=== PATIENT | female | born 1990 | race Caucasian/White ===

== ENCOUNTER 2017-01-12 15:16 | Emergency (ER) | payer OTHER ==
[~2017-01-12] VITALS: Ht 157.5 cm; Wt 73.0 kg
[~2017-01-12 15:16] MED LIST: CIPR250T6 PO; IBUP-974 PO; PHEN-136 PO
[2017-01-12 16:23] VITALS: BP 114/75
--- NOTE | 2017-01-12 16:47 | NUR ---
PT TAKEN TO BED8
--- NOTE | 2017-01-12 16:48 | NUR ---
26/F BIB SELF C/O RIGHT SIDED LBP RADIATES TO RIGHT ABDOMEN X4 DAYS. PT STATES SHE HAD 1 EPISODE OF DIARRHEA THIS AM. SKIN IS PINK/WARM/DRY; AAOX4 WITH EVEN AND STEADY GAIT; LUNGS CLEAR BL; HR EVEN AND REGULAR; PT DENIES ANY FEVER, CP, SOB, OR COUGH AT THIS TIME; PATIENT STATES PAIN OF 6/10 AT THIS TIME; VSS; PATIENT POSITIONED FOR COMFORT; HOB ELEVATED; BEDRAILS UP X2; BED DOWN. ER MD MADE AWARE OF PT STATUS.
--- NOTE | 2017-01-12 16:48 | NUR ---
Note undone in EDM - 01/12/17 at 1713 by [email or web address] W/C/O RIGHT SIDED LBP RADIATES TO RIGHT ABDOMINAL X4 DAYS. PT STATES SHE HAD 1 EPISODE OF DIARRHEA THIS AM. SKIN IS PINK/WARM/DRY; AAOX4 WITH EVEN AND STEADY GAIT; LUNGS CLEAR BL; HR EVEN AND REGULAR; PT DENIES ANY FEVER, CP, SOB, OR COUGH AT THIS TIME; PATIENT STATES PAIN OF 6/10 AT THIS TIME; VSS; PATIENT POSITIONED FOR COMFORT; HOB ELEVATED; BEDRAILS UP X2; BED DOWN. ER MADE AWARE OF PT STATUS.
[2017-01-12] MEDS ORDERED: ONDANSETRON 4 MG/2 ML VIAL IVP ONE (16:50)
[2017-01-12] MEDS ORDERED: NACL 0.9% 1,000 ML IV ONE (16:50)
[2017-01-12] MEDS ORDERED: MORPHINE SULFATE 4 MG/ML SYR IVP ONE (16:50)
--- NOTE | 2017-01-12 16:50 | NUR ---
Patient being evaluated by DR FRANCES at bedside.
--- NOTE | 2017-01-12 17:10 | NUR ---
US AT BEDSIDE.
[2017-01-12 17:34] LABS: BASOPHILS # (AUTO) 0.5 K/uL (0.00-0.22); EOSINOPHILS # (AUTO) 0.3 K/uL (0-0.4); HEMATOCRIT 40.5 % (36-48); HEMOGLOBIN 13.3 g/dL (12.0-16.0); LYMPHOCYTES # (AUTO) 1.6 K/uL (2.5-16.5); MEAN CORPUSCULAR HEMOGLOBIN 29 pg (27-31); MEAN CORPUSCULAR HGB CONC 33 g/dL (33-37); MEAN CORPUSCULAR VOLUME 88 fL (80-94); MONOCYTES # (AUTO) 0.8 K/uL (0.8-1.0); NEUTROPHILS # (AUTO) 5.4 K/uL (1.8-7.7); PLATELET COUNT (AUTO) 247 K/uL (140-450); RED BLOOD CELL COUNT(AUTO) 4.58 MIL/uL (4.20-5.40); RED CELL DISTRIBUTION WIDTH 11.8 % (11.6-13.7); WHITE BLOOD COUNT (AUTO) 8.6 K/uL (4.8-10.8)
--- NOTE | 2017-01-12 17:39 | NUR ---
PT REFUSED MEDS AT THIS TIME. NOTIFIED DR FRANCES. AWARE. Addendum: 01/12/17 at 1740 by [email or web address] PT STATED PAIN 09/22 .
[2017-01-12 17:44] LABS: ANION GAP 16.2 (8-16); CARBON DIOXIDE 25.8 mmol/L (21-32); CREATININE 0.7 mg/dL (0.6-1.3)
[2017-01-12 17:45] LABS: APPEARANCE,URINE CLEAR (CLEAR); BILIRUBIN,URINE NEGATIVE (NEGATIVE); BLOOD, URINE 1+ (NEGATIVE); COLOR,URINE YELLOW (YELLOW); LEUKOCYTE ESTERASE ,URINE NEGATIVE (NEGATIVE); NITRITE, URINE NEGATIVE (NEGATIVE); PH,URINE 5.5 (5.0-9.0); UGLUCOSE NEGATIVE (NEGATIVE)
[2017-01-12 17:49] LABS: WBC,URINE 0-5 /HPF (0-5)
[2017-01-12 17:50] LABS: TOTAL BILIRUBIN 0.6 mg/dL (0.0-1.0)
--- NOTE | 2017-01-12 18:03 | NUR ---
Patient appears to be resting comfortably in bed. Vital Signs within normal limits. Respirations even and unlabored.WILL CONTINUE TO MONITOR.
--- NOTE | 2017-01-12 18:20 | NUR ---
Patient being reevaluated by DR FRANCES at bedside.
--- NOTE | 2017-01-12 18:35 | NUR ---
IV removed, catheter intact and site benign. Applied folded 4x4 gauze and tape to stop bleeding.
[2017-01-12 18:40] VITALS: BP 112/73
--- NOTE | 2017-01-12 18:40 | NUR ---
Patient discharged with v/s stable. Written and verbal after care instructions given and explained. Patient verbalized understanding. Ambulatory with steady gait. All questions addressed prior to discharge. Advised to follow up with PMD.
== END 2017-01-12 18:40 | disposition home or self-care (01) ==
LOC: MED 15:16
DX: R10.13 Epigastric pain (principal); R10.11 Right upper quadrant pain
CPT/HCPCS: 36415; 76700; 80053; 81001; 81025; 83690; 85025; 96360; 99285; J2405; J7030; Q0092; J2270

== ENCOUNTER 2017-10-09 19:14 | Emergency (ER) | payer OTHER ==
[~2017-10-09] VITALS: Ht 157.5 cm; Wt 77.1 kg
[~2017-10-09 19:14] MED LIST changes: -PHEN-136 PO; +PHEN-1749 PO
[2017-10-09 19:15] VITALS: BP 125/60
--- NOTE | 2017-10-09 19:18 | NUR ---
AMBULATED TO BED #2. GAVE REPORT TO VIRGIL HARPER
--- NOTE | 2017-10-09 19:27 | NUR ---
27 YO F TO ER WITH C/O RIGHT ULNAR SIDE OF WRIST PAIN S/P FALL ON STAIRS 1.5HRS AGO . PT STATES SLIPPING ON STAIRS AND ATTEMPTING TO CATCH SELF. PT STATED THAT THERE WAS A LY OF PAIN IN THE R WRIST. R WRIST WITH MILD SWELLING. NO DEFORMITY, NO REDDNESS. +RADIAL PULSES, <3 SEC CAP REFILL. MINIMAL ROM OF WRIST DUE TO PAIN. DENIES N/V/D; SKIN IS PINK/WARM/DRY; AAOX4 WITH EVEN AND STEADY GAIT; LUNGS CLEAR BL; HR EVEN AND REGULAR; PT DENIES ANY FEVER, CP, SOB, OR COUGH AT THIS TIME; PATIENT STATES PAIN OF 0/10 AT THIS TIME, PT STATES PAIN ONLY WITH MOVEMENT; VSS; PATIENT POSITIONED FOR COMFORT; HOB ELEVATED; BEDRAILS UP X2; BED DOWN. ER MD MADE AWARE OF PT STATUS.
[2017-10-09 22:13] VITALS: BP 120/78
--- NOTE | 2017-10-09 22:13 | NUR ---
Patient discharged with v/s stable. Written and verbal after care instructions given and explained dR. Marroquin. Patient alert, oriented and verbalized understanding of instructions. Ambulatory with steady gait. All questions addressed prior to discharge. ID band removed. Patient advised to follow up with PMD. Rx of NAPROSYN 500MG given. Patient educated on indication of medication including possible reaction and side effects. Opportunity to ask questions provided and answered.
== END 2017-10-09 22:13 | disposition home or self-care (01) ==
LOC: MED 19:14
DX: S40.021A Contusion of right upper arm, initial encounter (principal); W10.9XXA Fall (on) (from) unspecified stairs and steps, initial encounter; Y93.02 Activity, running; Y99.8 Other external cause status; Y92.89 Other specified places as the place of occurrence of the external cause
CPT/HCPCS: 73090; 81002; 81025; 99284; Q0092

== ENCOUNTER 2018-06-23 11:28 | Emergency (ER) | payer OTHER ==
[~2018-06-23] VITALS: Ht 162.6 cm; Wt 79.2 kg
[~2018-06-23 11:28] MED LIST changes: -CIPR250T6 PO; -PHEN-1749 PO
[2018-06-23 11:40] VITALS: BP 125/73
--- NOTE | 2018-06-23 11:48 | NUR ---
PT AMBULATES TO BED 7
[2018-06-23] MEDS ORDERED: KETOROLAC 30 MG/ML VIAL IVP ONE (12:00)
[2018-06-23] MEDS ORDERED: NACL 0.9% 1,000 ML IV ONE (12:00)
--- NOTE | 2018-06-23 12:00 | NUR ---
28 yo f bib family w/ c/o weakness, severe n/v x 2 days. poss dehydration. dry lips/mucous membranes w/ tachy 120 bedside monitor. sent over by urgent care for stat labs and ivf. pt aaox4, gcs 15. rr even and unlabored. denies abd pain and diarrhea. intermittent fevers. temp 99.1 at this time. abd soft, non-tender. pt reports right lower back stiffness/pain, denies dysuria. given zofran at urgent care, reports improvement. nad. waiting er md lua. will continue to monitor.
--- NOTE | 2018-06-23 12:04 | NUR ---
lab at bedside.
[2018-06-23 12:14] LABS: BASOPHILS % (AUTO) 0.2 % (0.0-2.0); EOSINOPHILS % (AUTO) 0.1 % (0.0-4.0); HEMOGLOBIN 14.3 g/dL (12.0-16.0); LYMPHOCYTES # (AUTO) 1.1 K/uL (2.5-16.5); LYMPHOCYTES % (AUTO) 6.7 % (20.5-51.1); MEAN CORPUSCULAR HEMOGLOBIN 29 pg (27-31); MEAN CORPUSCULAR HGB CONC 33 g/dL (33-37); MEAN CORPUSCULAR VOLUME 86.7 fL (80-94); MONOCYTES # (AUTO) 1.1 K/uL (0.8-1.0); MONOCYTES % (AUTO) 6.5 % (1.7-9.3); NEUTROPHILS # (AUTO) 14.9 K/uL (1.8-7.7); NEUTROPHILS % (AUTO) 86.5 % (42.2-75.2); PLATELET COUNT (AUTO) 290 K/uL (140-450); RED BLOOD CELL COUNT(AUTO) 4.96 MIL/uL (4.20-5.40); RED CELL DISTRIBUTION WIDTH 12.6 % (11.6-13.7); WHITE BLOOD COUNT (AUTO) 17.2 K/uL (4.8-10.8)
[2018-06-23 12:38] LABS: ALBUMIN 4.2 g/dL (3.4-5.0); ANION GAP 13.9 (8-16); CARBON DIOXIDE 27.7 mmol/L (21-32); CREATININE 0.8 mg/dL (0.6-1.3); POTASSIUM 3.6 mmol/L (3.5-5.1); TOTAL BILIRUBIN 0.7 mg/dL (0.0-1.0)
[2018-06-23 12:43] LABS: PROTHROMBIN TIME 10.8 secs (10.8-13.4)
[2018-06-23 12:47] LABS: BILIRUBIN,URINE NEGATIVE (NEGATIVE); BLOOD, URINE 3+ (NEGATIVE); COLOR,URINE YELLOW (YELLOW); LEUKOCYTE ESTERASE ,URINE NEGATIVE (NEGATIVE); NITRITE, URINE NEGATIVE (NEGATIVE); UGLUCOSE NEGATIVE (NEGATIVE)
[2018-06-23 12:51] LABS: APPEARANCE,URINE SLIGHTLY HAZY (CLEAR)
[2018-06-23 12:52] LABS: RBC,URINE 0-5 (RARE) /HPF (0-5); WBC,URINE 0-5 (RARE) /HPF (0-5)
[2018-06-23] MEDS ORDERED: AMOXICILLIN 500 MG CAP PO ONE (13:25)
--- NOTE | 2018-06-23 14:07 | NUR ---
Patient discharged with v/s stable. Written and verbal after care instructions given and explained. Patient alert, oriented and verbalized understanding of instructions. Ambulatory with steady gait. All questions addressed prior to discharge. ID band removed. Patient advised to follow up with PMD. Rx of MOtrin 800mg, Amoxicillin 500mg, and Zofran 4mg given. Patient educated on indication of medication including possible reaction and side effects. Opportunity to ask questions provided and answered.
[2018-06-23 14:08] VITALS: BP 118/70
== END 2018-06-23 14:07 | disposition home or self-care (01) ==
LOC: MED 11:28
DX: J02.9 Acute pharyngitis, unspecified (principal); R53.1 Weakness; R52 Pain, unspecified; Z79.1 Long term (current) use of non-steroidal anti-inflammatories (NSAID)
CPT/HCPCS: 36415; 80053; 81001; 81025; 83690; 85025; 85610; 85730; 87804; 96361; 96374; 99283; J1885; J7030

== ENCOUNTER 2019-03-21 09:45 | Emergency (ER) | payer OTHER ==
[~2019-03-21] VITALS: Ht 157.5 cm; Wt 81.2 kg
[2019-03-21 09:50] VITALS: BP 136/79
--- NOTE | 2019-03-21 09:53 | NUR ---
TO ED 02 WITH STEADY GAIT.
--- NOTE | 2019-03-21 09:54 | NUR ---
PT AMBULATED TO RESTROOM TO PROVIDE URINE
--- NOTE | 2019-03-21 09:58 | NUR ---
PATIENT PRESENTS TO ED WITH C/O DIZZINESS, SHAKINESS, AND FEELS HEAD PRESSURE WHEN WAKE UP IN THE MORNING FOR THE PAST 3 DAYS. STATED POOR APPETITE, NAUSEA WITH EVERY MEAL. DENIES PAIN. VSS; PATIENT POSITIONED FOR COMFORT; HOB ELEVATED; BEDRAILS UP X2; BED DOWN. ER MD MADE AWARE OF PT STATUS.
--- NOTE | 2019-03-21 10:20 | NUR ---
Dr. Pickering is evaluating the patient at bedside.
[2019-03-21] MEDS ORDERED: ONDANSETRON 4 MG ODT PO ONE (10:25)
[2019-03-21] MEDS ORDERED: MECLIZINE 25 MG TAB PO ONE (10:25)
--- NOTE | 2019-03-21 10:40 | NUR ---
URINE COLLECTED, URINE DIP AND PREGNENCY TEST COMPLETED.
[2019-03-21 10:43] LABS: BASOPHILS % (AUTO) 0.3 % (0.0-2.0); EOSINOPHILS # (AUTO) 0.1 K/uL (0-0.4); EOSINOPHILS % (AUTO) 1.6 % (0.0-4.0); HEMATOCRIT 42.6 % (36-48); HEMOGLOBIN 14.3 g/dL (12.0-16.0); LYMPHOCYTES # (AUTO) 2.3 K/uL (2.5-16.5); LYMPHOCYTES % (AUTO) 30.2 % (20.5-51.1); MEAN CORPUSCULAR HEMOGLOBIN 30 pg (27-31); MEAN CORPUSCULAR HGB CONC 34 g/dL (33-37); MONOCYTES # (AUTO) 0.6 K/uL (0.8-1.0); MONOCYTES % (AUTO) 7.8 % (1.7-9.3); NEUTROPHILS # (AUTO) 4.6 K/uL (1.8-7.7); NEUTROPHILS % (AUTO) 60.1 % (42.2-75.2); PLATELET COUNT (AUTO) 335 K/uL (140-450); RED BLOOD CELL COUNT(AUTO) 4.84 MIL/uL (4.20-5.40); RED CELL DISTRIBUTION WIDTH 12.7 % (11.6-13.7); WHITE BLOOD COUNT (AUTO) 7.6 K/uL (4.8-10.8)
[2019-03-21 10:49] LABS: ANION GAP 11.3 (8-16); CARBON DIOXIDE 29.2 mmol/L (21-32); CREATININE 0.6 mg/dL (0.6-1.3); POTASSIUM 4.5 mmol/L (3.5-5.1)
[2019-03-21 11:03] LABS: ALBUMIN 3.6 g/dL (3.4-5.0); THYROID STIMULATING HORMONE 1.26 uIU/mL (0.34-3.74); TOTAL BILIRUBIN 0.5 mg/dL (0.0-1.0)
--- NOTE | 2019-03-21 11:30 | NUR ---
PT STATED FEELING MUCH BETTER NOW, VSS, DENIES PAIN, OK TO BE DISCHARGED TO HOME, ER MD AWARE.
--- NOTE | 2019-03-21 11:43 | NUR ---
Patient discharged with v/s stable. Written and verbal after care instructions given and explained.Rx of MECLIZINE, ZOFRAN given. Patient educated on indication of medication including possible reaction and side effects. All questions addressed prior to discharge. ID band removed. Patient advised to follow up with PMD.
[2019-03-21 11:44] VITALS: BP 136/79
== END 2019-03-21 11:43 | disposition home or self-care (01) ==
LOC: MED 09:45
DX: R42 Dizziness and giddiness (principal); I10 Essential (primary) hypertension; Z79.1 Long term (current) use of non-steroidal anti-inflammatories (NSAID)
CPT/HCPCS: 36415; 80053; 81002; 81025; 84443; 85025; 93005; 99284; J8597; Q0162

== ENCOUNTER 2021-07-15 03:13 | Emergency (ER) | payer OTHER ==
[~2021-07-15] VITALS: Ht 154.9 cm; Wt 75.7 kg
[2021-07-15 03:18] VITALS: BP 131/89
--- NOTE | 2021-07-15 03:39 | NUR ---
31 YO/F BIB SELF W C/O NUMBNESS/TINGLING TO UPPER/LOWER EXTREMITIES AND BACK CONSTANT X3 DAYS AGO, + WEAKNESS, FATIGUE, CHILLS. PT REPORTS SYMPTOMS STARTED WHEN HER MESTRUAL CYCLE BEGAN, ALSO REPORTS THICKER MENSTRUATION. PT ALSO REPORTS RECENTLY SAW PCP AND FOUND TO HAVE CERVICAL/BLADDER POLYPS AND WILL HAVE A STUDY DONE TO CHECK FOR CERVICAL/BLADDER CLOTS. PT DENIES FEVERS, PAIN, N/V/D, URINARY SYMPTOMS. PT LAYING IN BED EATING A BANANA. BREATHING EVEN AND UNLABORED. NAD NOTED, WILL CONTINUE TO MONTIOR. PMH: HTN, DEPRESSION, CERVICAL/BLADDER POLYPS ALLERGIES: DENIES
--- NOTE | 2021-07-15 03:55 | NUR ---
Dr. Casillas examining patient.
--- NOTE | 2021-07-15 04:26 | NUR ---
PT REPORTS FEELING UNCOMFORTABLE BEING DISCHARGED W/O HAVING ANY TESTING DONE. PT ASKING TO SPEAK TO ERMD. ERMD MADE AWARE PER ERMD PT UP FOR DISCHARGE AND WILL NOT SEE PT ANYMORE. PT MADE AWARE. PT REPORTS SHE WILL WAIT IN THE LOBBY FOR NEXT ER DOCTOR TO BE RE-EVALUATED. PT REFUSED TO SIGN DISCHARGE PAPER WORK. CHARGE NURSE MADE AWARE.
[2021-07-15 04:27] VITALS: BP 131/89
--- NOTE | 2021-07-15 04:27 | NUR ---
Patient discharged with v/s stable. Written after care instructions given BUT PT REFUSED VERBAL INSTRUCTION. PT REFUSED TO SIGN D/C PAPERWORK. PT LEFT W/O HAVING ID BAND REMOVED.
== END 2021-07-15 04:27 | disposition home or self-care (01) ==
LOC: MED 03:13
DX: R20.2 Paresthesia of skin (principal); F41.9 Anxiety disorder, unspecified; I10 Essential (primary) hypertension; F32.9 Major depressive disorder, single episode, unspecified; Z79.1 Long term (current) use of non-steroidal anti-inflammatories (NSAID)
CPT/HCPCS: 99281

== ENCOUNTER 2022-02-08 13:37 | Emergency (ER) | payer OTHER ==
[~2022-02-08] VITALS: Ht 154.9 cm; Wt 70.8 kg
[2022-02-08 14:09] VITALS: BP 125/84
--- NOTE | 2022-02-08 14:14 | NUR ---
BIB SELF C/O 5/10 LIGHT HEADACHE S/P PROPANE LEAKING FROM [employer] AT WORK X THIS AM TODAY. PMH: DENIES
[2022-02-08 16:28] VITALS: BP 125/79
--- NOTE | 2022-02-08 16:41 | NUR ---
Patient discharged with v/s stable. Written and verbal after care instructions given. Patient verbalized understanding. Ambulatory with steady gait. All questions addressed prior to discharge. Advised to follow up with PMD. WORK NOTE HANDED TO PATIENT.
== END 2022-02-08 16:28 | disposition home or self-care (01) ==
LOC: MED 13:37
DX: R11.0 Nausea (principal); R42 Dizziness and giddiness; R51.9 Headache, unspecified; I10 Essential (primary) hypertension; Z79.899 Other long term (current) drug therapy
CPT/HCPCS: 99281